=== PATIENT | male | born 1960 | race Caucasian/White ===

== ENCOUNTER 2018-09-08 11:59 | Emergency (ER) | payer MEDICARE, BC ==
[2018-09-08] MEDS ORDERED: NORMAL SALINE 1000 ML 1,000 ML IV ONE ×2 (12:51→14:44)
[2018-09-08 13:16] LABS: ABSOLUTE BASOPHILS # (AUTO) 0.1 10^3/uL (0.0-0.2); ABSOLUTE EOSINOPHILS # (AUTO) 0.2 10^3/uL (0.0-0.6); ABSOLUTE LYMPHOCYTES (AUTO) 2.7 10^3/uL (0.5-4.7); ABSOLUTE MONOCYTES (AUTO) 0.7 10^3/uL (0.1-1.4); ABSOLUTE NEUT (AUTO) 6.7 10^3/uL (1.7-8.2); EOSINOPHILS % (AUTO) 2.2 % (0-6); HEMATOCRIT 42.3 % (37.9-51.0); HEMOGLOBIN 14.9 g/dL (13.5-17.0); MEAN CORPUSCULAR HEMOGLOBIN 27.8 pg (27.0-33.4); MEAN CORPUSCULAR HGB CONC 35.2 g/dL (32.0-36.0); MEAN CORPUSCULAR VOLUME 79 fl (80-97); MONOCYTES % (AUTO) 6.9 % (3-13); PLATELET COUNT 241 10^3/uL (150-450); RED BLOOD COUNT 5.36 10^6/uL (4.35-5.55); RED CELL DISTRIBUTION WIDTH 12.5 % (11.5-14.0); SEGMENTED NEUTROPHILS % (AUTO) 63.9 % (42-78); TOTAL CELLS COUNTED % (AUTO) 100 %; WHITE BLOOD COUNT 10.5 10^3/uL (4.0-10.5)
[2018-09-08 13:24] LABS: ALANINE AMINOTRANSFERASE 77 U/L (21-72); ALBUMIN 4.4 g/dL (3.5-5.0); ALKALINE PHOSPHATASE 103 U/L (38-126); ANION GAP 9 (5-19); ASPARTATE AMINO TRANSFERASE 76 U/L (17-59); BILIRUBIN,DIRECT 0.2 mg/dL (0.0-0.4); BILIRUBIN,TOTAL 0.6 mg/dL (0.2-1.3); BLOOD UREA NITROGEN 17 mg/dL (7-20); CALCIUM 9.5 mg/dL (8.4-10.2); CARBON DIOXIDE 25 mmol/L (22-30); CHLORIDE 107 mmol/L (98-107); CREATINE KINASE 78 U/L (55-170); GLUCOSE 203 mg/dL (75-110); POTASSIUM 4.4 mmol/L (3.6-5.0); SODIUM 140.8 mmol/L (137-145); TOTAL PROTEIN 7.6 g/dL (6.3-8.2)
[2018-09-08 13:31] LABS: CREATINE KINASE MB 1.72 ng/mL (<4.55)
[2018-09-08 13:37] LABS: TROPONIN I 0.017 ng/mL
[2018-09-08 16:17] LABS: APPEARANCE,URINE CLEAR; BILIRUBIN,URINE NEGATIVE (NEGATIVE); COLOR,URINE YELLOW; GLUCOSE, URINE 50 mg/dL (NEGATIVE); KETONES,URINE NEGATIVE (NEGATIVE); LEUKOCYTE ESTERASE,URINE NEGATIVE (NEGATIVE); NITRITE,URINE NEGATIVE (NEGATIVE); PROTEIN,URINE NEGATIVE (NEGATIVE); URINE SPECIFIC GRAVITY 1.019; UROBILINOGEN,URINE NEGATIVE mg/dL (<2.0)
[2018-09-08 17:10] VITALS: BP 102/76
--- NOTE | 2018-09-08 17:11 | ER Document Report ---
Entered by ELISEO FUENTES SCRIBE 09/08/18 0167 Acting as scribe for:EMILE GUTIÉRREZ MD ED Syncope and Near Syncope - General Chief Complaint: Dizziness Stated Complaint: DIZZINESS Time Seen by Provider: 09/08/18 12:49 Mode of Arrival: Wheelchair Information source: Relative Notes: 58-year-old male with autonomic neuropathy that presents today with complaints of a syncopal episode. at bedside states that his presentation today is similar to syncopal episodes he frequently has. states he is rarely seen for these, he lies down and his symptoms resolve. states that these symptoms happen as often as once a month. does note that the patient states that "this is the quickest an episode has ever come on him". He was at a biological chemist's office with his dog when this presyncope/syncope symptoms began. Patient's reports he had mentioned some left-sided abdominal pain the last several days. 1440: Patient is now completely alert and feels much better. He states that he has been living here a few months and trying to decide if they are going to move here permanently from [place] where his doctors are located. He also reports he had had some pain in the left flank going around toward the front for about for 5 days, and that he sneezed last night and had a severe sharp increase in the left lateral abdominal wall pain. There is an area just below the ribs on the left anterior lateral side and in the left flank region which are both very tender to palpate. There is no rash. He also reports the last time his creatinine was checked, his doctor told him he had stage III renal failure. - Related Data Allergies/Adverse Reactions: Sulfa (Sulfonamide Antibiotics) Allergy (Verified 09/08/18 12:02) sulfamethoxazole [From Septra] Allergy (Verified 09/08/18 12:02) trimethoprim [From Septra] Allergy (Verified 09/08/18 12:02) Past Medical History - General Information source: Relative, [facility] Records - Social History Smoking Status: Never Smoker Family History: Reviewed & Not Pertinent - Medical History Notes: Autonomic neuropathy Past Surgical History: Reports: Hx Appendectomy, Hx Orthopedic Surgery - Neck fusion C4-C5 Review of Systems - Review of Systems Constitutional: No symptoms reported EENT: No symptoms reported Cardiovascular: See HPI, Syncope Respiratory: No symptoms reported Gastrointestinal: No symptoms reported Genitourinary: No symptoms reported Male Genitourinary: No symptoms reported Musculoskeletal: No symptoms reported Skin: No symptoms reported Hematologic/Lymphatic: No symptoms reported Neurological/Psychological: No symptoms reported -: Yes All other systems reviewed and negative Physical Exam - Vital signs Vitals: Temp Pulse Resp BP Pulse Ox 97.6 F 87 20 160/68 H 97 09/08/18 12:11 09/08/18 12:11 09/08/18 12:11 09/08/18 12:11 09/08/18 12:11 - Notes Notes: Physical Exam: General: Arousable, decreased responsiveness but does answer to name and answers questions when engaged. HEENT: Normocephalic. Atraumatic. PERRL. Extraocular movements intact. Oropharynx clear. Neck: Supple. Non-tender. Respiratory: No respiratory distress. Clear and equal breath sounds bilaterally. Cardiovascular: Regular rate and rhythm. Thready right radial pulse, stronger right femoral pulse. Abdominal: Obese. No distension. Normal Bowel Sounds. Later exam when the patient is completely alert, shows point tenderness in the left anterior lateral abdominal wall just below the ribs and point tenderness in the left lower flank region and the muscles. Back: Non-tender. No deformity or step off. Extremities: Moves all four extremities. Upper extremities: Normal inspection. Normal ROM. Lower extremities: Normal inspection. No edema. Normal ROM. Neurological: Decreased responsiveness but when aroused answers all questions appropriately. Psychological: Seems somewhat lethargic and a little confused. Keep his eyes closed. Skin: Dry. Lips seem very pale. Course - Vital Signs Vital signs: Temp Pulse Resp BP Pulse Ox 97.6 F 87 21 H 104/62 98 09/08/18 12:11 09/08/18 12:11 09/08/18 16:02 09/08/18 16:02 09/08/18 16:02 - Laboratory Result Diagrams: 09/08/18 12:45 09/08/18 12:45 Laboratory results interpreted by me: 09/08/18 09/08/18 09/08/18 12:45 12:45 12:47 MCV 79 L Glucose 203 H POC Glucose 216 H AST 76 H ALT 77 H Urine Glucose (UA) 09/08/18 15:14 MCV Glucose POC Glucose AST ALT Urine Glucose (UA) 50 H - EKG Interpretation by Me EKG shows normal: Sinus rhythm, Starke, Intervals, QRS Complexes, ST-T Waves Rate: Normal - 70 Rhythm: NSR Voltage: Consistant with LVH When compared to previous EKG there are: Previous EKG unavailable Critical Care Note - Critical Care Note Total time excluding time spent on procedures (mins): 30 Discharge - Discharge Clinical Impression: Dysfunctional autonomic nervous system, Syncope and collapse Condition: Stable Disposition: HOME, SELF-CARE Additional Instructions: Syncopal Episode Syncope (fainting or near-fainting) can occur from many different health problems. Or it can be a simple fainting spell requiring no treatment. It is safe for you to go home, but further evaluation will likely be necessary. Your work-up may include tests for internal bleeding, heart disease, medication problems, or near-strokes. Tests are not always required, however, depending on the nature of your problem. The warning signs of an impending faint include: dizziness, lightheadedness, nausea, hot flashes, tingling, and weakness. If this happens, lay down and put your feet up, then wait until all of these symptoms have passed before standing up again. If these episodes become recurrent, or if you develop chest pain, heart palpitations, mental confusion, blurred vision, or headache, then you should call the physician, or go to the emergency room. Your urine today seem to be very concentrated. You should drink plenty of fluids every day. Try to get a local medical provider if you are going to remain in this area. RETURN TO THE EMERGENCY ROOM IF ANY NEW OR WORSENING SYMPTOMS. Ngoc Attestation: 09/08/18 13:55 I personally performed the services described in the documentation, reviewed and edited the documentation which was dictated to the scribe in my presence, and it accurately records my words and actions. I personally performed the services described in the documentation, reviewed and edited the documentation which was dictated to the scribe in my presence, and it accurately records my words and actions.
--- NOTE | 2018-09-08 21:07 | EKG REPORT ---
SEVERITY:- ABNORMAL ECG - SINUS RHYTHM LEFT VENTRICULAR HYPERTROPHY : Confirmed by: Matty Emmanuel 08-Sep-2018 21:07:09
== END 2018-09-08 17:00 | disposition home or self-care (01) ==
LOC: ER 11:59
DX: G90.8 Other disorders of autonomic nervous system (principal); R55 Syncope and collapse; R42 Dizziness and giddiness
CPT/HCPCS: 93005; 99291; 96360; 36415; 82553; 82962; 82550; 85025; 80053; 81001; 84484; 83605; 93010; J7030